=== PATIENT | female | born 1980 | race Caucasian/White ===

== ENCOUNTER → 2020-06-09 09:19 | Outpatient (CLI) | payer OTHER, SELFPAY ==
--- NOTE | ~2020-06-09 | MR_ITS ---
EXAMINATION: MR shoulder RT wo con DATE: 06/09/2020 10:15 INDICATION: Right rotator cuff tear presenting with right shoulder pain and limited range of motion o ne week post weight lifting injury TECHNIQUE: Magnetic resonance imaging (MRI) of the right shoulder was performed without intravenous c ontrast. Sequences included axial PD-weighted FS FSE, coronal oblique PD-weighted FS FSE, coronal obl ique T2-weighted FS FSE, sagittal PD-weighted FS FSE, and sagittal T1-weighted SE. COMPARISON: None. FINDINGS: Coracoacromial arch: The acromion undersurface is curved in morphology (type II). The coracoacromial ligament is normal. A cromioclavicular joint is normal. Rotator cuff: Moderate tendinopathy of the distal supraspinatus tendon without discrete tear. The infraspinatus, te res minor and subscapularis tendons are normal. Normal rotator cuff muscle bulk and signal. Biceps tendon, glenoid labrum and glenohumeral cartilage: Long head of the biceps tendon is normal. There is linear increased signal of less than fluid intensi ty at the bone labral interface along the 10:00-6:00 position of the posterior glenoid. This could re present a labral tear however the signal is isointense to the marrow in the adjacent glenoid and is m ore likely to represent marginal osteophyte formation. Glenoid labrum appears otherwise normal. Parti al-thickness cartilage loss with smooth chondral surface at the apex and anterosuperior the superomed ial aspect of the humeral head. Fluid: Physiologic amount of fluid in the glenohumeral joint and biceps tendon sheath. No loose osteochondra l bodies. Mild increased fluid signal in the subacromial/subdeltoid bursa consistent with minimal bur sitis. Bones/other: Of subcortical edema along the superior facet of the greater tuberosity likely reactive related to th e overlying rotator cuff disease. Was normal marrow signal with no fracture or pathologic marrow repl acing process. Incidental lenticular 4.2 x 3.2 x 1.3 cm subcutaneous lipoma overlying the spine of th e scapula. IMPRESSION: 1. Moderate tendinopathy of the distal supraspinatus tendon without discrete tear. 2. Increased signal at the base of the posterior to posterior inferior glenoid labrum with appearance favoring marginal osteophyte formation over labral tear. Marginal osteophytes would likely be appare nt on plain radiographs. Otherwise could obtain either MR arthrography or CT for more definitive dete rmination. Reviewed, dictated and finalized at location A. IMPRESSION: 1. Moderate tendinopathy of the distal supraspinatus tendon without discrete te ar. 2. Increased signal at the base of the posterior to posterior inferior glenoid labrum with appearance favoring marginal osteophyte formation over labral tear. Marginal osteophytes would likely be apparent on plain radiographs. Otherwise could obtain either MR arthrography or CT for more definitive determination.
== END ==
DX: M75.101 Unspecified rotator cuff tear or rupture of right shoulder, not specified as traumatic (principal); M75.81 Other shoulder lesions, right shoulder
CPT/HCPCS: 73221

== ENCOUNTER → 2021-03-03 09:32 | Outpatient (CLI) | payer OTHER, SELFPAY ==
--- NOTE | ~2021-03-03 | MMUS_ITS ---
EXAMINATION: MM diagnostic shane BI w marilyn, US breast BI complete HISTORY: Right breast lump at 4:00 TECHNIQUE: ML, MLO and craniocaudal 3-D tomosynthesis images of both breasts were performed and synth etic 2-D images were generated. CAD analysis was submitted and interpreted. High resolution complete bilateral breast ultrasound was performed. COMPARISON: None BREAST PARENCHYMAL COMPOSITION: The breasts are extremely dense, which lowers the sensitivity of mamm ography. FINDINGS: MAMMOGRAPHIC FINDINGS: No suspicious mass or architectural distortion, malignant calcification, skin thickening or retractio n is detected. Considering the complaint of right breast lump and the extremely dense stroma which may obscure roberto s, bilateral complete breast ultrasound examination was performed. ULTRASOUND: There are numerous bilateral simple and occasional septated cysts, measuring up to 6 x 10 x 8 mm on t he right at 10:00 4 cm from the nipple. Scattered left breast cysts measure up to 3 x 8 x 11 mm at 1: 00 3 cm from the nipple No abnormality including solid lesion or cyst at the area of clinical complaint on right at 4:00. There is a left breast 8:00 lesion 5 cm from the nipple with irregular margins and internal vasculari ty, measuring 3.4 x 7.9 x 7 mm. Ultrasound-guided biopsy is recommended. IMPRESSION: 1. 3.4 x 7.9 x 7 mm hypoechoic solid lesion with internal vascularity at left breast 8:00 5 cm from n ipple 2. Ultrasound-guided biopsy is recommended at left breast 8:00 5 cm from nipple BI-RADS category 4, suspicious findings. Dr. Hardin telephoned the report and ultrasound guided biopsy recommendation of left breast 8:00 lesion on 02/23/2021 at 1115 hours to Nurse Mari. Reviewed, dictated and finalized at location A. IMPRESSION: 1. 3.4 x 7.9 x 7 mm hypoechoic solid lesion with internal vascularity at left b reast 8:00 5 cm from nipple 2. Ultrasound-guided biopsy is recommended at left breast 8:00 5 cm from nipple BI-RADS category 4, suspicious findings. Dr. Hardin telephoned the report and ultrasound guided biopsy recommendation of l eft breast 8:00 lesion on 02/23/2021 at 1115 hours to Nurse Mari.
== END ==
PROVIDERS: Visit Provider Nurse Practitioner
DX: R92.8 Other abnormal and inconclusive findings on diagnostic imaging of breast (principal)
CPT/HCPCS: 76641; 77062; 77066; G0279

== ENCOUNTER → 2021-07-29 10:08 | Outpatient (REF) | payer OTHER, SELFPAY | LOC: ANHLAB 10:08 | PROVIDERS: Visit Provider Nurse Practitioner | DX: D17.1 Benign lipomatous neoplasm of skin and subcutaneous tissue of trunk (principal) | CPT/HCPCS: 88304 ==

== ENCOUNTER 2021-11-13 11:48 | Emergency (ER) | payer OTHER, SELFPAY ==
[2021-11-13 12:09] VITALS: BP 145/88; PULSE 70; RESP 16; TEMP 36.9; O2SAT 100
--- NOTE | 2021-11-13 12:23 | ED.URI ---
HPI - URI/Sore Throat General Chief Complaint: Upper Respiratory Infection Stated Complaint: sore throat headache Time Seen by Provider: 11/13/21 12:23 Source: patient and RN notes reviewed Mode of arrival: ambulatory Limitations: no limitations History of Present Illness HPI Narrative: 41-year-old female presents concern for 5-day history of sore throat, nasal congestion, cough, rhinorrhea. She reports she been using [id number] medications that relief. She has been vaccinated for Covid. Reports some of her children have similar symptoms. She denies shortness of breath. Reports fever, body aches, headache. MD elicited complaint: sore throat Related Data Allergies Allergy/AdvReac Type Severity Reaction Status Date / Time No Known Allergies Allergy Unknown Verified 11/13/21 12:15 Review of Systems Review of Systems: CONSTITUTIONAL: Reports malaise, fever. Denies chills, sweats EYES: Denies visual changes, redness, or discharge. ENT: Reports rhinorrhea, congestion, sinus pain and sore throat. CARDIOVASCULAR: Denies chest pain, palpitations, or edema. RESPIRATORY: Reports productive cough. Denies dyspnea. GASTROINTESTINAL: Denies abdominal pain, nausea, vomiting, diarrhea SKIN: Denies rash or itching. MUSCULOSKELETAL: Reports myalgia. NEUROLOGIC: Reports headache. All systems reviewed & are unremarkable except as noted in HPI and below PMFSH Social History Social History Smoking status: Unknown if ever smoked Alcohol intake: current Comments At time of signature, agree with nursing past medical, surgical, social and family history. There is no relevant family history pertinent to the presenting complaint Exam Narrative: GENERAL: Well-appearing, well-nourished, and in no acute distress. HEAD: Normocephalic EYES: PERRLA, conjunctivae clear ENT: Nares rani, clear discharge. Mucous membranes moist. TM pearly donahue with dull light reflex bilaterally; no tragal tenderness. Oropharynx erythematous without lesions. Tonsils not enlarged and without exudate, no drooling, no hoarseness, no trismus, uvula midline. NECK: Supple. No lymphadenopathy CHEST: Clear to auscultation, breath sounds equal. No wheezing, rhonchi, rales, or stridor. No respiratory distress, speaks in full sentences. HEART: Regular rate and rhythm. No murmur heard. SKIN: Warm, dry, no rash. NEURO: Alert and oriented x3. PSYCH: Normal mood and affect Course Course Emergency Course: Patient is aware of diagnosis, understands and agrees to treatment plan. Anticipatory guidance given. Patient agrees to follow-up as directed and is aware of reasons to seek care at the emergency department. Portions of this record may have been created with voice recognition software Level of Care: Express Care Visit Vital Signs Vital signs: Vital Signs Temperature 98.5 F 11/13/21 12:09 Pulse Rate 70 11/13/21 12:09 Respiratory Rate 16 11/13/21 12:09 Blood Pressure 145/88 H 11/13/21 12:09 Pulse Oximetry 100 11/13/21 12:09 Temperature 98.5 F 11/13/21 12:09 Pulse Rate 70 11/13/21 12:09 Respiratory Rate 16 11/13/21 12:09 Blood Pressure 145/88 H 11/13/21 12:09 Pulse Oximetry 100 11/13/21 12:09 Reviewed. MDM - URI/Sore Throat MDM Narrative Medical decision making narrative: Differential diagnosis considered: Wheeler virus, strep pharyngitis, allergic rhinitis, upper respiratory tract infection, sinusitis, rhinosinusitis, nasopharyngitis. viral pharyngitis, otitis media, otitis externa, pneumonia, bronchitis, viral cough syndrome, viral syndrome, and influenza. Exam findings show no acute concerns or changes; patient is non-toxic appearing and is in no distress. Patient is appropriate for outpatient treatment and follow-up. Lab Data Attestation: I reviewed the patient's lab results. Critical Care Time Critical Care Time Critical Care Time: No Discharge Plan Discharge Clinical Im
== END 2021-11-13 12:52 | disposition home or self-care (01) ==
PROVIDERS: Emergency Provider Nurse Practitioner
DX: J06.9 Acute upper respiratory infection, unspecified (principal); Z20.822 Contact with and (suspected) exposure to COVID-19
CPT/HCPCS: 87081; 87426; 87880; 99213; C9803; G0463

== ENCOUNTER 2024-02-22 10:31 | Outpatient (CLI) | payer OTHER, SELFPAY ==
--- NOTE | ~2024-02-22 | US_ITS ---
EXAMINATION: US pelvic complete w TV DATE: 02/22/2024 11:12 INDICATION: Evaluate endometrium and uterine fibroids Comparison:No prior studies for comparison. TECHNIQUE: Multiple transabdominal and endovaginal sonographic images of the pelvis performed. FINDINGS: The uterus measures 7.3 x 4.4 x 6.3 cm. The uterus is retroverted. There is a small fibroid measuring 11 mm at the fundus. The endometrial complex measures 1 cm. The right ovary measures 2.7 x 2.2 x 3.7 cm and the left ovary measures 2.8 x 1.6 x 2.6 cm. There ar e small follicles in each ovary. Normal doppler signal in both ovaries. There is free fluid in the pelvis. There are no abnormal masses seen on either side. IMPRESSION: 1. Small uterine fibroid at the fundus measuring 11 mm. Reviewed, dictated and finalized at location B.
== END 2024-02-22 10:32 ==
LOC: MICIMG 10:32
DX: N92.4 Excessive bleeding in the premenopausal period (principal); D25.9 Leiomyoma of uterus, unspecified
CPT/HCPCS: 76830; 76856

== ENCOUNTER 2024-02-27 08:29 | Outpatient (CLI) | payer OTHER, SELFPAY ==
--- NOTE | ~2024-02-27 | MM_ITS ---
EXAMINATION: MM screening shane BI w marilyn HISTORY: Screening mammogram TECHNIQUE: Craniocaudal and mediolateral oblique 3-D tomosynthesis images were obtained and synthetic 2-D images were generated. CAD analysis was submitted and interpreted. COMPARISON: 03/03/2021 bilateral diagnostic mammography and complete bilateral breast ultrasound exami nation BREAST PARENCHYMAL COMPOSITION: The breasts are extremely dense, which lowers the sensitivity of mamm ography. FINDINGS: There is no evidence of suspicious mass, calcification, or architectural distortion to sugg est malignancy in either breast. There has been no suspicious interval change. IMPRESSION: 1. No mammographic evidence of malignancy. 2. Recommend routine screening mammography in one year. BI-RADS Category 1: Negative Reviewed, dictated and finalized at location A.
== END 2024-02-27 08:30 | disposition home or self-care (01) ==
LOC: CHSIMG 08:32
PROVIDERS: PCP Family Medicine
DX: Z12.31 Encounter for screening mammogram for malignant neoplasm of breast (principal)
CPT/HCPCS: 77063; 77067